=== PATIENT | female | born 1985 | race Two or more races ===

== ENCOUNTER → 2019-12-29 | Outpatient (CLI) | payer SELFPAY ==
--- NOTE | 2019-12-29 16:12 | RADIOLOGY REPORT (SQ) ---
EXAM DESCRIPTION: U/S [id number] TRNABD 1GES W/ODOP IMAGES COMPLETED DATE/TIME: 12/29/2019 4:01 pm REASON FOR STUDY: Z34.81 ENCOUNTER FOR SUPRVSN OF NORMAL , FIRST TRIMESTER Z34.81 ENCOUNTE R FOR SUPRVSN OF NORMAL , FIRST TRIM COMPARISON: None. TECHNIQUE: Transabdominal static and realtime grayscale images acquired of the pelvis. Additional se lected spectral and color Doppler images recorded. All images stored on PACs. bHCG: Not available. CLINICAL DATES: Not known. LIMITATIONS: None. FINDINGS: FETUS: Single Living intrauterine . ULTRASOUND EGA: 11 weeks 1 day ULTRASOUND NATHALIE: 07/18/2020 EFW: Not applicable less than 20 weeks. CRL: 4.3 cm FHR: 157 beats per minute. SURVEY: No visualized anomalies. AMNIOTIC FLUID: Adequate amount. PLACENTA: Not yet developed due to early gestation. SUBCHORIONIC BLEED: No. SIZE OF BLEED: Not applicable. UTERUS: No masses. No anomalies. CERVICAL LENGTH: 3.6 cm. Closed. RIGHT ADNEXA: Normal ovary with normal vascular flow. No adnexal free fluid. No adnexal masses. LEFT ADNEXA: Normal ovary with normal vascular flow. No adnexal free fluid. No adnexal masses. FREE FLUID: None. OTHER: No other significant finding. IMPRESSION: LIVING INTRAUTERINE . EGA 11 weeks 1 day. Trimester of : First trimester - 0 to 13 weeks. TECHNICAL DOCUMENTATION: JOB ID: [id number] 2010 [employer]- All Rights Reserved Reading location - IP/workstation name: [email or web address]
== END ==
LOC: RAD 15:09
PROVIDERS: ATTEND Midwife
DX: Z34.81 Encounter for supervision of other normal pregnancy, first trimester (principal); Z3A.11 11 weeks gestation of pregnancy
CPT/HCPCS: 76801

== ENCOUNTER 2020-06-11 08:29 | Outpatient (CLI) | payer SELFPAY ==
--- NOTE | 2020-06-11 09:15 | Non Stress Test Report ---
Non Stress Test Datetime Report Generated by CPN: 06/11/2020 09:15 DEMOGRAPHIC EGA NST: 34.3 INDICATION Indication for Study (NST) Other: scheduled NST MONITORING Monitor Explained: Monitor Explained; Test Explained; Patient Verbalized Understanding Time on Monitor: 06/11/2020 08:45 Time off Monitor: 06/11/2020 09:12 NST Duration: 27 NST INTERVENTIONS NST Interventions: PO Hydration Physician Notified NST: N. Sheth, CNM BABY A: [id number] BABY A Movement : Present Contraction Frequency : 0 FHR Baseline : 145 Accelerations : 15X15 Decelerations : None Variability : Moderate 6-25bpm NST Review: Meets Criteria for Reactive NST NST Review and Verified By : Radha Camp RNC NST REPORT Report Trigger: Send Report
--- NOTE | 2020-06-11 10:49 | RADIOLOGY REPORT (SQ) ---
EXAM DESCRIPTION: U/S OB LIMITED IMAGES COMPLETED DATE/TIME: 06/11/2020 10:35 am REASON FOR STUDY: bi wkly KARL COMPARISON: None. TECHNIQUE: Limited transabdominal grayscale ultrasound for evaluation of specific requested obstetri hang parameters. LIMITATIONS: None. FINDINGS: CERVICAL LENGTH: The cervix is not visualized. KARL: 8.3 cm. LVP: 4.7 x 2.4 FHR: 153 beats per minute. PRESENTATION: Cephalic. PLACENTA: Not assessed ANATOMY: Not assessed OTHER: No other significant findings. IMPRESSION: LIMITED OBSTETRICAL ULTRASOUND WITH MEASURED PARAMETERS DELINEATED ABOVE. Trimester of : Third trimester - 28 weeks to delivery. TECHNICAL DOCUMENTATION: JOB ID: [id number] 2010 [employer]- All Rights Reserved Reading location - IP/workstation name: [email or web address]
== END 2020-06-11 11:02 | disposition home or self-care (01) ==
LOC: LC 08:29
PROVIDERS: ATTEND Obstetrics & Gynecology
DX: O09.523 Supervision of elderly multigravida, third trimester (principal); Z3A.34 34 weeks gestation of pregnancy
CPT/HCPCS: 59025; 76815

== ENCOUNTER 2020-07-05 13:52 | Outpatient (CLI) | payer SELFPAY ==
--- NOTE | 2020-07-05 15:12 | RADIOLOGY REPORT (SQ) ---
EXAM DESCRIPTION: U/S OB LIMITED IMAGES COMPLETED DATE/TIME: 07/05/2020 2:42 pm REASON FOR STUDY: KARL COMPARISON: May 2023 twin TECHNIQUE: Limited transabdominal grayscale ultrasound for evaluation of specific requested obstetri hang parameters. LIMITATIONS: None. FINDINGS: CERVICAL LENGTH: Not seen. KARL: 10.6 cm. LVP 4.2 x 5.1 cm. FHR: 152 beats per minute. PRESENTATION: Cephalic. PLACENTA: Fundal. ANATOMY: Not assessed OTHER: Intrauterine gestation of 37 weeks 6 days. IMPRESSION: LIMITED OBSTETRICAL ULTRASOUND WITH MEASURED PARAMETERS DELINEATED ABOVE. Trimester of : Third trimester - 28 weeks to delivery. TECHNICAL DOCUMENTATION: JOB ID: [id number] 2010 [employer]- All Rights Reserved Reading location - IP/workstation name: [email or web address]
--- NOTE | 2020-07-05 15:44 | Non Stress Test Report ---
Non Stress Test Datetime Report Generated by CPN: 07/05/2020 15:43 DEMOGRAPHIC EGA NST: 37.6 INDICATION Indication for Study (NST) Other: Repeat NST; AMA; IUP at 37.6 VITAL SIGNS Temperature - NST: 98.5 Pulse - NST: 95 RESP - NST: 18 NBPSYS NST: 112 NBPDIA NST: 66 MONITORING Monitor Explained: Monitor Explained; Test Explained; Patient Verbalized Understanding Time on Monitor: 07/05/2020 14:02 Time off Monitor: 07/05/2020 14:22 NST Duration: 20 NST INTERVENTIONS NST Interventions: PO Hydration Physician Notified NST: K. Truong, CNM BABY A: [id number] BABY A Movement : Present Contraction Frequency : none FHR Baseline : 150 Accelerations : 15X15 Decelerations : None Variability : Moderate 6-25bpm NST Review: Meets Criteria for Reactive NST NST Review and Verified By : Krista Monte RN NST Results: Reactive NST REPORT Report Trigger: Send Report
== END 2020-07-05 15:26 | disposition home or self-care (01) ==
LOC: LC 13:52
PROVIDERS: ATTEND Obstetrics & Gynecology Gynecology
DX: O09.523 Supervision of elderly multigravida, third trimester (principal); Z3A.37 37 weeks gestation of pregnancy
CPT/HCPCS: 59025; 76815

== ENCOUNTER 2020-07-09 08:34 | Outpatient (CLI) | payer SELFPAY ==
--- NOTE | 2020-07-09 09:09 | Non Stress Test Report ---
Non Stress Test Datetime Report Generated by CPN: 07/09/2020 09:09 DEMOGRAPHIC Test Number: 3 EGA NST: 38.3 INDICATION Indication for Study (NST) Other: AMA VITAL SIGNS Temperature - NST: 98.2 Pulse - NST: 92 RESP - NST: 16 NBPSYS NST: 116 NBPDIA NST: 69 MONITORING Monitor Explained: Monitor Explained; Test Explained; Patient Verbalized Understanding Monitor Explained Other: daughter serving as regional construction manager Time on Monitor: 07/09/2020 08:45 Time off Monitor: 07/09/2020 09:08 NST Duration: 23 NST INTERVENTIONS NST Interventions: PO Hydration Physician Notified NST: NMonica Sheth, CNM BABY A: [id number] BABY A Movement : Present Contraction Frequency : irritability FHR Baseline : 140 Accelerations : 15X15 Decelerations : None Variability : Moderate 6-25bpm NST Review: Meets Criteria for Reactive NST NST Review and Verified By : Sautry NST Results: Reactive NST REPORT Report Trigger: Send Report
== END 2020-07-09 09:12 | disposition home or self-care (01) ==
LOC: LC 08:34
PROVIDERS: ATTEND Obstetrics & Gynecology
DX: O09.523 Supervision of elderly multigravida, third trimester (principal); Z3A.38 38 weeks gestation of pregnancy
CPT/HCPCS: 59025

== ENCOUNTER 2020-07-17 08:38 | Inpatient (IN) | payer SELFPAY ==
[2020-07-11 10:24] LABS: ABSOLUTE BASOPHILS # (AUTO) 0.1 10^3/uL (0.0-0.2); ABSOLUTE EOSINOPHILS # (AUTO) 0.8 10^3/uL (0.0-0.6); ABSOLUTE LYMPHOCYTES (AUTO) 1.5 10^3/uL (0.5-4.7); ABSOLUTE MONOCYTES (AUTO) 0.8 10^3/uL (0.1-1.4); ABSOLUTE NEUT (AUTO) 6.3 10^3/uL (1.7-8.2); BASOPHILS % (AUTO) 0.6 % (0-2); EOSINOPHILS % (AUTO) 8.9 % (0-6); HEMATOCRIT 38.6 % (36.0-47.0); HEMOGLOBIN 13.2 g/dL (12.0-15.5); LYMPHOCYTES % (AUTO) 15.6 % (13-45); MEAN CORPUSCULAR HGB CONC 34.1 g/dL (32.0-36.0); MEAN CORPUSCULAR VOLUME 94 fl (80-97); MONOCYTES % (AUTO) 8.4 % (3-13); PLATELET COUNT 215 10^3/uL (150-450); RED BLOOD COUNT 4.12 10^6/uL (3.72-5.28); RED CELL DISTRIBUTION WIDTH 13.7 % (11.5-14.0); SEGMENTED NEUTROPHILS % (AUTO) 66.5 % (42-78); TOTAL CELLS COUNTED % (AUTO) 100 %; WHITE BLOOD COUNT 9.4 10^3/uL (4.0-10.5)
[2020-07-11 10:42] LABS: APPEARANCE,URINE SLIGHTLY-CLOUDY; BILIRUBIN,URINE NEGATIVE (NEGATIVE); COLOR,URINE YELLOW; GLUCOSE, URINE NEGATIVE (NEGATIVE); KETONES,URINE 20 mg/dL (NEGATIVE); LEUKOCYTE ESTERASE,URINE SMALL (NEGATIVE); NITRITE,URINE NEGATIVE (NEGATIVE); PROTEIN,URINE 30 mg/dL (NEGATIVE); UROBILINOGEN,URINE NEGATIVE mg/dL (<2.0)
[2020-07-11 11:01] LABS: URINE AMPHETAMINES SCREEN NEGATIVE; URINE BARBITURATES SCREEN NEGATIVE; URINE BENZODIAZEPINES SCREEN NEGATIVE; URINE COCAINE SCREEN NEGATIVE; URINE MARIJUANA (THC) SCREEN NEGATIVE; URINE METHADONE SCREEN NEGATIVE; URINE PHENCYCLIDINE SCREEN NEGATIVE
[~2020-07-17 08:38] MED LIST: LACTATED RINGERS 1000 ML IV PRN; LIDOCAINE 0.5% INJ-PF (5 MG/ML) 50 ML SDV SUBCUT PRN
[2020-07-17] MEDS ORDERED: FENTANYL CITRATE INJ/PF 100 MCG/2 ML AMPUL ONE ×2 (09:15→16:17)
[2020-07-17] MEDS ORDERED: ACETAMINOPHEN 1,000 MG/100 ML RTUPB IV ONE (09:15)
[2020-07-17] MEDS ORDERED: OXYTOCIN/0.9 % SODIUM CHLORIDE 30 UNIT/500 ML RTUINJ ONE (09:15)
[2020-07-17] MEDS ORDERED: OXYTOCIN 10 UNIT/ML VIAL ONE (09:15)
[2020-07-17] MEDS ORDERED: KETOROLAC TROMETHAMINE INJ/PF 30 MG/1 ML SDV ONE (09:15)
[2020-07-17] MEDS ORDERED: GLYCOPYRROLATE INJ 0.4 MG/2 ML VIAL ONE (09:15)
[2020-07-17] MEDS ORDERED: MIDAZOLAM 2 MG/2 ML INJ ONE (09:15)
[2020-07-17] MEDS ORDERED: ONDANSETRON HCL INJ/PF 4 MG/2 ML SDV ONE (09:15)
[2020-07-17] MEDS ORDERED: PHENYLEPHRINE HCL INJ/PF 10 MG/1 ML SDV ONE (09:15)
[2020-07-17] MEDS ORDERED: EPHEDRINE SULFATE INJ 50 MG/1 ML AMPULE ONE (09:16)
[2020-07-17] MEDS ORDERED: CEFAZOLIN 2 GM/D5W RTU 2 GM/50 ML RTUPB IV PRN (10:08)
[2020-07-17] MEDS ORDERED: RINGERS SOLUTION,LACTATED 1,500 ML IV ONE (10:15)
[2020-07-17] MEDS ORDERED: PROMETHAZINE HCL INJ 25 MG/1 ML VIAL IV PRN ×3 (13:11→13:26)
[2020-07-17] MEDS ORDERED: OXYTOCIN/0.9 % SODIUM CHLORIDE 30 UNIT/500 ML RTUINJ IV PRN (13:11)
[2020-07-17] MEDS ORDERED: OXYCODONE-ACETAMINOPHEN 5-325 MG TABLET PO PRN ×3 (13:11→13:26)
[2020-07-17] MEDS ORDERED: SIMETHICONE 80 MG TAB.CHEW PO PRN (13:11)
[2020-07-17] MEDS ORDERED: ACETAMINOPHEN 325 MG TABLET PO PRN (13:11)
[2020-07-17] MEDS ORDERED: MEASLES,MUMPS&RUBELLA VACC/PF 0.5 ML VIAL SUBCUT PRN (13:11)
[2020-07-17] MEDS ORDERED: HYDROMORPHONE HCL INJ/PF 2 MG/ML AMPULE IV PRN (13:11)
[2020-07-17] MEDS ORDERED: RINGERS SOLUTION,LACTATED 1,000 ML IV PRN (13:11)
[2020-07-17] MEDS ORDERED: DIPH/PERTUSS(ACELL)/TETANUS VAC/PF 0.5 ML SYR (>=10YO) IM PRN (13:11)
[2020-07-17] MEDS ORDERED: FENTANYL CITRATE INJ/PF 100 MCG/2 ML AMPUL IV PRN ×3 (13:26)
[2020-07-17] MEDS ORDERED: ONDANSETRON HCL INJ/PF 4 MG/2 ML SDV IV PRN (13:26)
[2020-07-17] MEDS ORDERED: DIPHENHYDRAMINE HCL 50 MG/ML VIAL IV PRN (13:26)
[2020-07-17] MEDS ORDERED: MEPERIDINE HCL/PF INJ 25 MG/1 ML DISP.SYRIN IV PRN (13:26)
--- NOTE | 2020-07-17 14:53 | Birth Certificate Data ---
Cert Data Datetime Report Generated by CPN: 07/17/2020 14:52 CERTIFICATE DATA Delivery Provider: Machelle Pires MD (07/17/2020 14:34:Annette Monte RN) 47a. Care: Yes (06/11/2020 08:42:Radha Fisher [facility]) 48a. Number of Prev Live Births: 1 (06/11/2020 08:42:Radha Fisher [facility]) 48b. Now Livin (06/11/2020 08:42:Radha Fisher [facility]) 48c. Live Births Now : 0 (06/11/2020 08:42:QS system process) RISK FACTORS IN THIS 49c. Previous Births: 0 (06/11/2020 08:42:Radha Camp, RNC) 49f. Previous Cesareans: 0 (06/11/2020 08:42:Radha Camp, RNC) Mother's Height 50b. Height Inches: 57 (07/17/2020 14:15:QS system process) Mother's Weight 51b. Weight at Delivery (lbs): 147 (07/17/2020 14:15:QS system process) Onset of Labor 56a. PROM >12 Hrs: 0.03 (06/11/2020 08:42:QS system process) 57a. Induction of Labor: N/A (06/11/2020 08:42:Annette Monte RN) 57c. Non-Vertex Presentation A: Vertex (06/11/2020 08:42:Annette Monte RN) 57d. Steroids - Lung Mat: None (06/11/2020 08:42:Annette Monte RN) 57d. Steroids - Lung Mat: Not Applicable (06/11/2020 08:42:Annette Monte RN) 57e. Antibiotics During Labor: 07/17/2020 13:05 (06/11/2020 08:42:Annette Monte RN) 57f. Mat Chorio or Temp >100.4: 97.4 (06/11/2020 08:42:Annette Monte RN) 57g. Moderate/Heavy Meconium: Clear (06/11/2020 08:42:Annette Monte RN) 57h. Intolerance of Labor: Repeat Elective (06/11/2020 08:42:Annette Monte RN) : N/A (06/11/2020 08:42:Annette Monte RN) 57i. Epidural/Spinal Anesthesia: None (06/11/2020 08:42:Annette Monte RN) Method of Delivery 58a. Forceps - Unsuccessful A: N/A (06/11/2020 08:42:Annette Sales, ) 58b. Vacuum - Unsuccessful A: Successful (06/11/2020 08:42:Annette Sales, ) 58c. Presentation at 58c. Presentation at - A : Vertex (06/11/2020 08:42:Annette Sales, ) 58c. Presentation at - A : N/A (06/11/2020 08:42:Annette [facility], ) 58c. Presentation at - A : Cephalic (06/11/2020 08:42:Annette Sales, ) Final Route and Method of Del 58d. Baby A Route/Delivery: (06/11/2020 08:42:Annette Monte RN) 58e. Trial of Labor Attempted: No (06/11/2020 08:42:Annette Monte RN) 58e. Trial of Labor Attempted A: N/A (06/11/2020 08:42:Annette Monte RN) 58e. Trial of Labor Attempted B: N/A (06/11/2020 08:42:Annette Monte RN) Maternal Morbidity 59b. 3rd or 4th Degree Lacs: None (06/11/2020 08:42:Annette Monte RN) 59b. 3rd or 4th Degree Lacs: N/A (06/11/2020 08:42:Annette Monte RN) Birthweight Baby A: 3350 (06/11/2020 08:42:Patt Hylton RN) 60a. Pounds : 7 (06/11/2020 08:42:QS system process) 60b. Ounces: 6 (06/11/2020 08:42:QS system process) 61. GA at Delivery Baby A: 39.4 (06/11/2020 08:42:Annette Sales, RN) : Full Term- 39- 40.6 Weeks (06/11/2020 08:42:QS system process) 62a. 5 Minute Baby A: 9 (06/11/2020 08:42:QS system process)
--- NOTE | 2020-07-17 14:53 | Delivery Summary ---
Del Sum A-C Datetime Report Generated by CPN: 07/17/2020 14:52 DELIVERY PERSONNEL DELIVERY PERSONNEL: [id number] Delivery Doctor:: Machelle Pires MD TIE MAKER:: Dwayne Normile, TIE MAKER Manager Business Information:: Annette Monte RN Neonatal Nurse Practitioner:: MAYI Hernandez Nursery Nurse:: Patt Hylton RN Fire Technician/SOCIETY REPORTER: Funmilayo Roy BRUSH OPERATOR Fire Technician/SOCIETY REPORTER: Lesly Wright, ST MATERNAL INFORMATION Delivery Anesthesia: Spinal Medications After Delivery: Pitocin 30 Units in 500ml NS/D5W; Pitocin Drip 20 Units/1000ml NSS Delivery QBL: 475 Maternal Complications: None LABOR SUMMARY EDC: 07/20/2020 00:00 No. Babies in Womb: 1 Attempted: No Labor Anesthesia: None LABOR INFORMATION Reason for Induction: Not Applicable Oxytocin: N/A Group B Beta Strep: Negative Antibiotics # of Doses: 1 Antibiotics Time of Last Dose: 07/17/2020 13:05 Name of Antibiotic Given: Ancef 2g Steroids Given: None Reason Steroids Not Administered: Not Applicable MEMBRANES Membranes Rupture Method: Artificial Rupture of Membranes: 07/17/2020 13:33 Length of Rupture (hr): 0.03 Amniotic Fluid Color: Clear Amniotic Fluid Amount: Large Amniotic Fluid Odor: Normal STAGES OF LABOR Stage 3 hr: 0 Stage 3 min: 1 VAGINAL DELIVERY Episiotomy: None Laceration #1: None Laceration Extension #1: N/A Laceration Repair: Not Applicable Sponge Count Correct: N/A Sharps Count Correct: N/A CSECTION DELIVERY Primary Indication: Repeat Elective Secondary Indication: N/A CSection Urgency: Scheduled CSection Incidence: Repeat Labor: No Labor Elective: Elective CSection Incision: Lower Uterine Transverse Other Sterilization Procedure: Filshie Clips BABY A INFORMATION Delivery Date/Time: 07/17/2020 13:35 Method of Delivery: Born in Route : No : N/A Forceps: N/A Vacuum Extraction: Successful Shoulder Dystocia : No ASSISTED DELIVERY BABY A Indication for Assisted Delivery: Assistance with delivery Catheter Prior to Procedure: Yes Position Vacuum/Forcep Apply: Right Occipital Anterior Vacuum Number of Pulls: 1 Vacuum Number of PopOffs: 0 Reduce Pressure btwn Ctx: Yes Total Time Vacuum Applied: 10 seconds PRESENTATION/POSITION BABY A Presentation: Cephalic Cephalic Presentation: Vertex Vertex Position: Right Occipital Anterior Breech Presentation: N/A PLACENTA INFORMATION BABY A Placenta Delivery Time : 07/17/2020 13:36 Placenta Method of Delivery: Manual Removal Placenta Status: Delivered SCORES BABY A Heart Rate 1 min: >100 bpm Resp Effort 1 min: Good Cry Reflex Irritability 1 min: Cough or Sneeze or Pulls Away Muscle Tone 1 min: Active Motion Color 1 min: Blue/Pale SCORE 1 MIN: 8 Heart Rate 5 min: >100 bpm Resp Effort 5 min: Good Cry Reflex Irritability 5 min: Cough or Sneeze or Pulls Away Muscle Tone 5 min: Active Motion Color 5 min: Body Rosanky, Extremities Blue SCORE 5 MIN: 9 INFANT INFORMATION BABY A Gestational Age at Delivery: 39.4 Gestational Status: Full Term- 39- 40.6 Weeks Outcome : Liveborn Condition : Stable Sex: Male IDENTIFICATION BABY A Infant Verification Date/Time: 07/17/2020 13:40 ID Band Number: [id number] Mother's Name Verified: Yes RN Verifying Infant: Krista Monte, RN Additional Verifying Personnel: Nina Hylton RN WEIGHT/LENGTH BABY A Infant Birthweight (gm): 3350 Infant Weight (lb): 7 Infant Weight (oz): 6 Infant Length (in): 20.25 Infant Length (cm): 51.44 CORD INFORMATION BABY A No. Cord Vessels: 3 Nuchal Cord : Around Neck x1, Loose Cord Blood Taken: Yes-For Eval (Mom's Blood Type - or O+) Infant Suction: Mouth; Nose BABY B INFORMATION : N/A
[2020-07-17] MEDS ORDERED: MORPHINE SULFATE 10 MG/ML INJ ONE (15:17)
[2020-07-17] MEDS: MORPHINE SULFATE 10 MG/ML INJ IV PRN ×3 (15:20→15:53)
[2020-07-17] MEDS ORDERED: DIPHENHYDRAMINE HCL 50 MG/ML VIAL ONE (15:25)
[2020-07-17] MEDS ORDERED: OXYCODONE-ACETAMINOPHEN 5-325 MG TABLET ONE (16:17)
[2020-07-17] MEDS: DOCUSATE SODIUM 100 MG CAPSULE PO SCH (18:11)
[2020-07-17] MEDS: KETOROLAC TROMETHAMINE INJ/PF 30 MG/1 ML SDV IV SCH (18:11)
--- NOTE | 2020-07-17 18:22 | Operative Report ---
Operative Report DATE OF SURGERY: 07/17/20 PREOPERATIVE DIAGNOSIS: Prior section. Intrauterine at 39+ weeks. Unwanted fertility POSTOPERATIVE DIAGNOSIS: Same as above OPERATION: Repeat section and bilateral tubal ligation SURGEON: DELMI WHITING ANESTHESIA: Spinal TISSUE REMOVED OR ALTERED: Placenta COMPLICATIONS: NOne ESTIMATED BLOOD LOSS: 800cc INTRAOPERATIVE FINDINGS: Normal appearing uterus, bilateral fallopian tubes and ovaries. Amniotic fluid clear. Viable male with of 8/9 at one and five minutes respectfully PROCEDURE: IV fluids: per anesthesia record Urinary output: 200 cc clear yellow urine Position: To recovery room in stable condition Description of procedure: The patient was taken to the operating room and spinal anesthesia was administered and found to be adequate. She was then placed on the OR table in the supine position with a slight leftward tilt. Patient was prepped and draped in usual sterile fashion. Ancef 2 gms was given IV prior to the procedure for infection prophylaxis. Timeout was taken. A Pfannenstiel skin incision was then made approximately 3 cm above the pubic symphysis at the level of prior scar and carried down to level the rectus fascia. The rectus fascia was then nicked in the midline with a scalpel and the fascial incision was extended laterally with use of curved Malin scissors. The rectus fascia was then grasped with 2 Kocker clamps elevated and the underlying rectus muscle was dissected off both bluntly and sharply. Scar tissue noted. Any bleeding controlled with cautery. The rectus muscles were then split in the midline and the peritoneum was entered. The peritoneal incision was then extended by manually stretching the peritoneum. The bladder blade was positioned. Bladder flap created and bladder blade replaced. The bladder was noted to be out of harm's way. A scalpel was then used in the lower uterine for the hysterotomy, slowly until amniotomy was obtained a moderate amount of fluid was noted. The uterine incision was then manually stretched. The infant was noted to be in vertex postion but engaged in the pelvis. The head was delivered with minmal difficulty. The shoulders and the rest of the body followed immediately. The cord was cut clamped and the infant was handed off to the nurse awaiting. Infant was crying prior to hand off. The placenta was manually delivered. Using a lap gauze the uterus was cleared of all clots and debris. The uterus was then exteriorized and a bladder blade was repositioned. The uterine incision was then closed with 0 Chromic suture in a running locked fashion. A second layer of the same suture was used in a running locked imbricated fashion. The uterine incision was inspected and noted to be hemostatic. Retractor was removed. The posterior aspect of the uterus was then inspected and anatomy was seen as above. The right fallopian tube was identified and traced to the fimbriated end. A filshie clip was placed approximately 2 cm from the uterine cornu. Clip surrounded the tube in its entirety. Blanching noted and hemostasis. The left fallopian tube was identified and traced to the fimbriated end. A filshie clip was placed approximately 2 cm from the uterine cornu. Clip surrounded the tube in its entirety. Blanching noted and hemostasis. The uterus was returned to its normal anatomic position within the abdominal cavity. Warm saline irrigation was used to clear all clots and debris from the abdomen. The uterine incision was inspected once more and noted to remain hemostatic. The bladder blade was removed and the peritoneum was closed with 2-0 chromic in a running fashion. The rectus muscles were then reapproximated and the rectus fascia was closed with a #0 looped PDS in a running fashion. The subcutaneous tissue was then inspected and any bleeding was controlled with Bovie electrocautery. The subcutaneous tissue was then closed with 2-0 Plain Gut suture in a running fashion. The skin was then closed with 3-0 Monocryl in a running subcuticular fashion. The skin incision was then clean dried and Derm abond was applied over the skin incision. All instrument sponge and needle counts were correct x3 for the procedure the patient tolerated the procedure well. She will proceed [facility]
--- NOTE | 2020-07-17 18:25 | PDOC DELIVERY SUMMARY ---
Delivery Summary - Maternal Hx : II Hx # Term Pregnancies: 1 NATHALIE: 07/20/20 Gestational Age: 40 Risk Factors: Previous - Delivery Presentation: Vertex Heart Rate Monitoring: Done Pre-Operatively : Scheduled Placenta: Within Normal Limits Number of Vessels (Cord): 3 Nuchal Cord: Yes - x1, easily reduced Estimated Blood Loss: 800 cc - Medications Type of Anesthesia:: Spinal - Delivery Personnel Page Technician: MD ayan: DELMI WHITING
[2020-07-18] MEDS: KETOROLAC TROMETHAMINE INJ/PF 30 MG/1 ML SDV IV SCH (02:31)
[2020-07-18] MEDS: IBUPROFEN 800 MG TABLET PO SCH ×3 (07:11→21:47)
[2020-07-18 07:47] LABS: HEMATOCRIT 33.1 % (36.0-47.0); HEMOGLOBIN 11.4 g/dL (12.0-15.5); MEAN CORPUSCULAR HEMOGLOBIN 31.4 pg (27.0-33.4); MEAN CORPUSCULAR HGB CONC 34.5 g/dL (32.0-36.0); MEAN CORPUSCULAR VOLUME 91 fl (80-97); PLATELET COUNT 189 10^3/uL (150-450); RED BLOOD COUNT 3.63 10^6/uL (3.72-5.28); RED CELL DISTRIBUTION WIDTH 13.4 % (11.5-14.0); WHITE BLOOD COUNT 12.2 10^3/uL (4.0-10.5)
[2020-07-18] MEDS: DOCUSATE SODIUM 100 MG CAPSULE PO SCH ×2 (09:30→17:20)
[2020-07-18] MEDS: PRENATAL VITAMIN W DHA CAPSULE PO SCH (09:30)
--- NOTE | 2020-07-18 10:33 | PDOC PROGRESS REPORT ---
Subjective-OB Progress Note for:: 07/18/20 Subjective: Pt doing well, no concerns. She reports light bleeding, reg diet, voiding w/o difficulty and +flatus. Martii used for interpretation. Physical Exam (OB) Vital Signs: Temp Pulse Resp BP Pulse Ox 97.8 F 77 18 128/71 H 96 07/18/20 08:24 07/18/20 08:24 07/18/20 08:24 07/18/20 08:24 07/18/20 08:24 Intake & Output 07/17/20 07/18/20 07/19/20 06:59 06:59 06:59 Intake Total 300 Output Total 1150 Balance -850 - PIH/Pre-Eclampsia DTR's: 1 + Clonus: Negative Headache: Absent Epigastric Pain: No - Dressing Removed: Yes Incision: Open, Well Approximated Closure Type: Surgical Glue - Maternal Morbidity 59. Maternal Morbidity (serious complications experinced by the mother associated with labor and delivery: None of the above - Lochia Lochia Amount: Scant < 10 ml Lochia Color: Rubra/Red - Abdomen Description: Firm, Soft Hernia Present: No Fundal Description: Firm, Midline Fundal Height: u/u - u/2 Objective-Diagnostic Laboratory: 07/18/20 07:04 07/18/20 07:04 WBC 12.2 H RBC 3.63 L Hgb 11.4 L Hct 33.1 L MCV 91 MCH 31.4 MCHC 34.5 RDW 13.4 Plt Count 189 Assessment and Plan(PN) - Assessment and Plan (1) Status post repeat low transverse section Is this a current diagnosis for this admission?: Yes - Time Spent with Patient Time with patient: Less than 15 minutes Medications reviewed and adjusted accordingly: Yes - Disposition Anticipated Discharge Disposition: Home, Self Care Anticipated Discharge Timeframe: within 24 hours
[2020-07-18] MEDS: OXYCODONE-ACETAMINOPHEN 5-325 MG TABLET PO PRN (16:00)
[2020-07-18] MEDS ORDERED: IBUPROFEN 800 MG TABLET PO SCH (22:00)
[2020-07-19] MEDS: OXYCODONE-ACETAMINOPHEN 5-325 MG TABLET PO PRN (03:46)
[2020-07-19] MEDS: IBUPROFEN 800 MG TABLET PO SCH (06:05)
[2020-07-19] MEDS: PRENATAL VITAMIN W DHA CAPSULE PO SCH (10:26)
[2020-07-19] MEDS: DOCUSATE SODIUM 100 MG CAPSULE PO SCH (10:26)
--- NOTE | 2020-07-19 10:52 | PDOC DISCHARGE SUMMARY ---
Impression - Admit/DC Date/PCP Admission Date/Primary Care Provider: 07/17/20 08:38 SUAD ANDERSON Discharge Date: 07/19/20 - Discharge Diagnosis (1) Status post repeat low transverse section Is this a current diagnosis for this admission?: Yes - Additional Information Resuscitation Status: Full Code Discharge Diet: Regular Discharge Activity: Pelvic Rest Referrals: KRISTI GODOY ARNP [Primary Care Provider] - Prescriptions: Oxycodone HCl/Acetaminophen [Percocet 5-325 mg Tablet] 1 tab PO Q4HP PRN #30 tablet PRN Reason: For Pain Scale 3-5 Ibuprofen [Motrin 800 mg Tablet] 800 mg PO Q8HP PRN #60 tablet PRN Reason: Home Medications: [id number]/Iron/Folic/Dha [ Formula-Dha Softgel] 1 each PO DAILY 06/11/20 Ibuprofen [Motrin 800 mg Tablet] 800 mg PO Q8HP PRN #60 tablet 07/19/20 Oxycodone HCl/Acetaminophen [Percocet 5-325 mg Tablet] 1 tab PO Q4HP PRN #30 tablet 07/19/20 HPI Gestational Age: 39 Reason(s) for Admission: Ceasarean Section-Repeat Procedures: None Intrapartum Procedure(s): : Low Cervical, Transverse, Tubal Ligation Hospital Course 59. Maternal Morbidity (serious complications experinced by the mother associated with labor and delivery: None of the above Results Laboratory Results: WBC 12.2 10^3/uL (4.0-10.5) H 07/18/20 07:04 RBC 3.63 10^6/uL (3.72-5.28) L 07/18/20 07:04 Hgb 11.4 g/dL (12.0-15.5) L 07/18/20 07:04 Hct 33.1 % (36.0-47.0) L 07/18/20 07:04 MCV 91 fl (80-97) 07/18/20 07:04 MCH 31.4 pg (27.0-33.4) 07/18/20 07:04 MCHC 34.5 g/dL (32.0-36.0) 07/18/20 07:04 RDW 13.4 % (11.5-14.0) 07/18/20 07:04 Plt Count 189 10^3/uL (150-450) 07/18/20 07:04 Lymph % (Auto) 15.6 % (13-45) 07/11/20 09:42 Morrow % (Auto) 8.4 % (3-13) 07/11/20 09:42 Eos % (Auto) 8.9 % (0-6) H 07/11/20 09:42 Baso % (Auto) 0.6 % (0-2) 07/11/20 09:42 Absolute Neuts (auto) 6.3 10^3/uL (1.7-8.2) 07/11/20 09:42 Absolute Lymphs (auto) 1.5 10^3/uL (0.5-4.7) 07/11/20 09:42 Absolute Monos (auto) 0.8 10^3/uL (0.1-1.4) 07/11/20 09:42 Absolute Eos (auto) 0.8 10^3/uL (0.0-0.6) H 07/11/20 09:42 Absolute Basos (auto) 0.1 10^3/uL (0.0-0.2) 07/11/20 09:42 Seg Neutrophils % 66.5 % (42-78) 07/11/20 09:42 Urine Color YELLOW 07/11/20 09:50 Urine Appearance SLIGHTLY-CLOUDY 07/11/20 09:50 Urine pH 5.0 (5.0-9.0) 07/11/20 09:50 Ur Specific Pearson 1.020 07/11/20 09:50 Urine Protein 30 mg/dL (NEGATIVE) H 07/11/20 09:50 Urine Glucose (UA) NEGATIVE mg/dL (NEGATIVE) 07/11/20 09:50 Urine Ketones 20 mg/dL (NEGATIVE) H 07/11/20 09:50 Urine Blood SMALL (NEGATIVE) H 07/11/20 09:50 Urine Nitrite NEGATIVE (NEGATIVE) 07/11/20 09:50 Urine Bilirubin NEGATIVE (NEGATIVE) 07/11/20 09:50 Urine Urobilinogen NEGATIVE mg/dL (<2.0) 07/11/20 09:50 Ur Leukocyte Esterase SMALL (NEGATIVE) H 07/11/20 09:50 Urine WBC (Auto) 6 /HPF 07/11/20 09:50 Urine RBC (Auto) 2 /HPF 07/11/20 09:50 Urine Bacteria (Auto) 1+ /HPF 07/11/20 09:50 Squamous Epi Cells Auto 20 /HPF 07/11/20 09:50 Urine Mucus (Auto) RARE /LPF 07/11/20 09:50 Urine Ascorbic Acid NEGATIVE (NEGATIVE) 07/11/20 09:50 Urine Opiates Screen NEGATIVE 07/11/20 09:50 Urine Methadone Screen NEGATIVE 07/11/20 09:50 Ur Barbiturates Screen NEGATIVE 07/11/20 09:50 Ur Phencyclidine Scrn NEGATIVE 07/11/20 09:50 Ur Amphetamines Screen NEGATIVE 07/11/20 09:50 U Benzodiazepines Scrn NEGATIVE 07/11/20 09:50 Urine Cocaine Screen NEGATIVE 07/11/20 09:50 U Marijuana (THC) Screen NEGATIVE 07/11/20 09:50 COVID-19 Source See comment 07/11/20 09:45 COVID-19 (ZACH) Not Detected (Not Detect) 07/11/20 09:45 Blood Type O POSITIVE 07/16/20 10:50 Antibody Screen NEGATIVE 07/16/20 10:50 Plan Plan of Treatment: f/u 1 wk at [facility] Time Spent: Less than 30 Minutes
[2020-07-19 11:34] VITALS: BP 119/83
== END 2020-07-19 13:35 | disposition home or self-care (01) | DRG 785 ==
LOC: 2S 08:38
PROVIDERS: ADMIT Obstetrics & Gynecology; ATTEND Obstetrics & Gynecology
PROC: 10D00Z1 Extraction of Products of Conception, Low, Open Approach (ICD-10-PCS; principal; 2020-07-17)
PROC: 0UL70CZ Occlusion of Bilateral Fallopian Tubes with Extraluminal Device, Open Approach (ICD-10-PCS; 2020-07-17)
DX: O34.211 Maternal care for low transverse scar from previous cesarean delivery (principal); O69.81X0 Labor and delivery complicated by cord around neck, without compression, not applicable or unspecified; Z30.2 Encounter for sterilization; Z37.0 Single live birth; Z3A.39 39 weeks gestation of pregnancy
CPT/HCPCS: 1961; 36415; 59025; 80307; 81001; 85025; 85027; 86850; 86900; 86901; 87635; 94760; 94799; C9803; J0131; J0690; J1200; J1885; J2250; J2270; J2370; J2405; J2550; J2590; J3010; J3490; J7120